=== PATIENT | male | born 1975 | race African-American/Black ===

== ENCOUNTER 2017-08-16 16:54 | Emergency (ER) | payer BC, OTHER ==
[2017-08-16 17:08] VITALS: BMI 30.4
--- NOTE | 2017-08-16 17:08 | PDOC ---
Rapid Medical Evaluation Time Seen by Provider: 08/16/17 17:05 Medical Evaluation: Allergies Allergy/AdvReac Type Severity Reaction Status Date / Time Penicillins Allergy Rash Verified 08/16/17 17:04 08/16/17 17:05 have performed a brief in-person evaluation of this patient. The patient presents with a chief complaint of: CP worse w/ cough and deep inspiration x 4 days. Denies pmhx or illicit drug use. Traveled to and back from [place] 2 weeks ago. No palpitations, leg pain/swelling, sob, diaphoresis, n /v Pertinent physical exam findings:stable and well jose w/ clear chest/lungs I have ordered the following:labs The patient will proceed to the ED for further evaluation Discharge Disposition - Diagnosis Chest pain Qualifiers: Chest pain type: unspecified Qualified Code(s): R07.9 - Chest pain, unspecified - Referrals - Patient Instructions - Post Discharge Activity
--- NOTE | 2017-08-16 17:31 | PDOC ---
History of Present Illness - General Chief Complaint: Chest Pain Stated Complaint: CHEST PAIN Time Seen by Provider: 08/16/17 17:05 - History of Present Illness Initial Comments: 08/16/17 17:31 The patient presents with a chief complaint of: CP worse w/ cough and deep inspiration x 4 days. Denies pmhx or illicit drug use. Traveled to and back from [place] 2 weeks ago. No palpitations, leg pain/swelling, sob, diaphoresis, n /v Past History - Past Medical History Allergies/Adverse Reactions: Allergies Allergy/AdvReac Type Severity Reaction Status Date / Time Penicillins Allergy Rash Verified 08/16/17 17:04 COPD: No Other medical history: DENIES. - Surgical History Appendectomy: Yes - Suicide/Smoking/Psychosocial Hx Smoking History: Never smoked *Physical Exam - Vital Signs Last Vital Signs Temp Pulse Resp BP Pulse Ox 98 F 68 19 143/78 98 08/16/17 17:04 08/16/17 17:04 08/16/17 17:04 08/16/17 17:04 08/16/17 17:04 *DC/Admit/Observation/Transfer Diagnosis at time of Disposition: Chest pain Qualifiers: Chest pain type: unspecified Qualified Code(s): R07.9 - Chest pain, unspecified - Referrals - Patient Instructions - Post Discharge Activity
--- NOTE | 2017-08-16 17:44 | PDOC ---
History of Present Illness - General Chief Complaint: Chest Pain Stated Complaint: CHEST PAIN Time Seen by Provider: 08/16/17 17:05 History Source: Patient Exam Limitations: No Limitations - History of Present Illness Initial Comments: This is a 42 YOM with h/o distant appendectomy who p/w one month of intermittent sharp substernal chest pain radiating to the left lower chest, associated with rapid palpitations. The pain is worsened by deep breathing. He left on a trip to [place] about 2 weeks ago, which was a ~[address] , and returned about 8 days ago. He denies any known exposures to sick people there, and denies any fever, chills, nausea, vomiting, diarrhea, constipation, rash, cough, congestion, runny nose, SOB, abdominal pain, dysuria, lightheadedness, headache, leg swelling/pain, or other symptoms. He has never had these symptoms before and denies having taken any medications for the symptoms. He does not use exogenous hormones and has no h/o blood clotting issues. Past History - Past Medical History Allergies/Adverse Reactions: Allergies Allergy/AdvReac Type Severity Reaction Status Date / Time Penicillins Allergy Rash Verified 08/16/17 17:04 COPD: No Other medical history: DENIES. - Surgical History Appendectomy: Yes - Suicide/Smoking/Psychosocial Hx Smoking History: Never smoked Review of Systems - Review of Systems Able to Perform ROS?: Yes Constitutional: No: Chills, Fever, Unexplained wgt Loss HEENTM: No: Nose Congestion, Throat Pain Respiratory: No: Cough, Shortness of Breath Cardiac (ROS): Yes: Chest Pain, Palpitations ABD/GI: No: Constipated, Diarrhea, Nausea, Vomiting : No: Burning, Dysuria Musculoskeletal: No: Back Pain, Neck Pain Integumentary: No: Bruising, Rash Neurological: No: Headache, Numbness, Tingling, Weakness, Dizziness Endocrine: No: Unexplained Weight Gain, Unexplained Weight Loss *Physical Exam - Vital Signs Last Vital Signs Temp Pulse Resp BP Pulse Ox 98 F 68 19 143/78 98 08/16/17 17:04 08/16/17 17:04 08/16/17 17:04 08/16/17 17:04 08/16/17 17:04 - Physical Exam General Appearance: Yes: Nourished, Appropriately Dressed, Other (nontoxic and well appearing adult male who appears comfortable and answers questions appropriately). No: Apparent Distress HEENT: positive: EOMI, Normal Voice, Hearing Grossly Normal. negative: Scleral Icterus (R), Scleral Icterus (L), Nasal Congestion Neck: positive: Trachea midline, Supple. negative: Tender, Rigid Respiratory/Chest: positive: Lungs Clear, Normal Breath Sounds. negative: Respiratory Distress, Crackles, Rhonchi, Stridor, Wheezing Cardiovascular: positive: Regular Rhythm, Regular Rate, S1, S2. negative: Edema , JVD, Murmur Gastrointestinal/Abdominal: positive: Normal Bowel Sounds, Soft. negative: Tender, Organomegaly, Pulsatile Mass, Guarding Musculoskeletal: positive: Normal Inspection. negative: Decreased Range of Motion, Vertebral Tenderness Extremity: positive: Normal Capillary Refill, Normal Inspection, Normal Range of Motion. negative: Tender, Cyanosis Integumentary: positive: Normal Color, Dry, Warm. negative: Erythema, Rash, Bruising Neurologic: positive: interpreter and translator II-XII NML intact (grossly), Fully Oriented, Alert, Normal Mood/Affect, Normal Response, Motor Strength / ED Treatment Course - LABORATORY CBC & Chemistry Diagram: 08/16/17 17:41 08/16/17 17:41 - ADDITIONAL ORDERS Additional order review: 08/16/17 17:41 RBC 4.65 MCV 92.0 MCHC 33.5 RDW 13.2 MPV 8.0 Neutrophils % 44.7 Lymphocytes % 43.5 H Monocytes % 8.8 Eosinophils % 2.3 Basophils % 0.7 - Medications Given in the ED: ED Medications Discontinued Medications Generic Name Dose Route Start Last Admin Trade Name Freq PRN Reason Stop Dose Admin Acetaminophen 975 mg 08/16/17 18:06 08/16/17 18:41 Tylenol - PO 08/16/17 18:07 975 mg ONCE ONE Administration Medical Decision Making - Medical Decision Making Adult male Pt p/w chest pain for the past month. Initial Vital Signs Temp Pulse Resp BP Pulse Ox 98 F 68 19 143/78 98 08/16/17 17:04 08/16/17 17:04 08/16/17 17:04 08/16/17 17:04 08/16/17 17:04 Exam: very well appearing, comfortable, appropriate, normal heart/lung/ abdominal exams, does not appear anxious. DDX IBNLT: GERD, gastritis, PUD, ACS, pericarditis, tamponade, aortic dissection , AAA, PTX, PE, esophageal tear, esophagitis (e.g. pill, infectious), esophageal stricture, esophageal FB, pancreatitis, cholecystitis, cholangitis, colitis, bowel perforation, PNA/bronchitis, pleurisy, pleuritis, MVP, pulmonary HTN, musculoskeletal, panic/anxiety, etc. W/U ordered: CBCD CMP Mg Phos Lipase Troponin CK CKMB Coags T&S Blood gas UA UCx EKG CXR. TX ordered: Tylenol Unlikely ACS as Pt has few risk factors, no associated SOB or typical arm/neck radiation. Unlikely pericarditis as pain is not relieved sitting forward, Pt afebrile, no friction rub. Unlikely tamponade as Pt has no triad of hypotension/JVD/muffled heart sounds. Unlikely AD as no ripping/tearing sensation, BP not concerningly elevated, radial pulses equal bilaterally. Unlikely AAA as Pt has no midline pulsatile mass or h/o AAA/AD, denies HTN or connective tissue d/o. Unlikely pneumothorax as VS are wnl, Pt has no recent h/o trauma or falls, not SOB. Unlikely PE as Pt is low-risk according to Wells and Perc tools, no hypoxia or tachycardia or SOB. Unlikely esophageal tear (Sammie-Mckeon/Boerhaave) as Pt denies recent EtOH or heavy vomiting/wretching. Unlikely esophagitis as Pt denies heavy NSAIDs or pills soon before onset, no immunocompromise/steroids. Unlikely esophageal stricture as the Pt is still able to keep down solids per usual, no prior hx. Unlikely esophageal FB as Pt denies having eaten just prior to onset, no stuck sensation. Unlikely gastritis as Pt denies h/o significant GERD, no overuse of EtOH. Unlikely PUD as Pt does not report relief of pain ~2 hours postprandially or with antacids. Unlikely pancreatitis as Pt denies EtOH use, h/o gallstones, no known hypercalcemia. Unlikely cholecystitis as no postprandial worsening. Unlikely cholangitis as Pt has no fever, clinical jaundice, RUQ pain; also no hypotension or AMS. Unlikely colitis as clinically Pts abdomen is not distended/no ascites, no fever, other VS wnl. Unlikely bowel perforation as Pt does not appear to have acute abdomen, no peritoneal signs. Unlikely PNA/bronchitis as Pt has no SOB, cough, fever, known exposures, h/o recurrent PNA, etc. EKG: CXR: NADP Labs: HEART score: Repeat VS: Reassessment: Cardiac enzymes are negative. Patient has been having these symptoms for a month, unchanged. No new abnormal rhythms have been observed on the rn cardiac. On last reassessment VS are stable, Pts pain is resolved, and exam is benign. The Pts HEART score indicates they are low risk and do not require admission currently. The Pt is appropriate for discharge with close outpatient follow up. They are comfortable with this plan and will follow up with their PCP in 1-3 days. Specific return precautions are discussed and they will come back to the ER if necessary. 08/16/17 18:57 *DC/Admit/Observation/Transfer Diagnosis at time of Disposition: Chest pain Qualifiers: Chest pain type: unspecified Qualified Code(s): R07.9 - Chest pain, unspecified - Discharge Dispostion Condition at time of disposition: Stable Decision to Admit order: No - Referrals Referrals: Raymond Aragon MD [Primary Care Provider] - - Patient Instructions Printed Discharge Instructions: DI for Chest Pain Additional Instructions: You were seen in the ER for chest pain. We did lab work on your blood and urine , an electrocardiogram, and a chest x-ray, and we did not find any concerning abnormalities. After our assessment, we do not believe you are having a medical emergency at this time, and we believe you are safe to go home. We do not have a clear answer for what is causing your pain, but a common cause of this type of pain is acid reflux. Please try taking omeprazole or another over-the- counter antacid, following the instructions on the label. Take [id number] pain medications for your pain, as instructed on the medication label. Please follow up with your regular PCP doctor in 1-3 days. Call their clinic as soon as possible, tell them you were seen in the ER, and tell them you need an appointment. If you have any new or worsening symptoms, especially worsening chest pain, jaw pain, shoulder/arm pain, shortness of breath, sweats, nausea, loss of consciousness, palpitations, or other symptoms, please come back to the ER at any time (24 hours a day). If you are having severe or life threatening symptoms, or symptoms that make it unsafe to drive or have someone drive you, please call 911. - Post Discharge Activity
[2017-08-16 17:52] LABS: BASO % 0.7 % (0-2.0); EOS % 2.3 % (0-4.5); HEMATOCRIT 42.8 % (35.4-49); HEMOGLOBIN 14.3 GM/dL (11.7-16.9); LYMPH % 43.5 % (8-40); MCH 30.8 pg (25.7-33.7); MCHC 33.5 g/dl (32.0-35.9); MONO % 8.8 % (3.8-10.2); NEUT % 44.7 % (42.8-82.8); PLATELET COUNT 276 K/MM3 (134-434); RBC 4.65 M/mm3 (4.00-5.60); RDW 13.2 % (11.9-15.9); WHITE BLOOD COUNT 7.8 K/mm3 (4.0-10.0)
[2017-08-16] MEDS ORDERED: ACETAMINOPHEN 500 MG TABLET (FP) PO ONE (18:06)
[2017-08-16 18:24] LABS: ANION GAP 8 (8-16); BILIRUBIN,TOTAL 0.5 mg/dL (0.2-1.0); BLOOD UREA NITROGEN 13 mg/dL (7-18); CALCIUM 8.6 mg/dL (8.5-10.1); CHLORIDE 105 mmol/L (98-107); CO2 27 mmol/L (21-32); CREATININE 1.1 mg/dL (0.7-1.3); GLUCOSE,RANDOM 86 mg/dL (74-106); POTASSIUM 3.8 mmol/L (3.5-5.1); SGOT/AST 23 U/L (15-37); SGPT/ALT 61 U/L (12-78); SODIUM 140 mmol/L (136-145)
[2017-08-16 18:27] LABS: ALK PHOS 64 U/L (45-117)
--- NOTE | 2017-08-16 18:30 | PDOC ---
Attending Attestation - Resident Resident Name: Anaya Harry - ED Attending Attestation I have performed the following: I have examined & evaluated the patient, The case was reviewed & discussed with the resident, I agree w/resident's findings & plan, Exceptions are as noted - HPI HPI: 08/16/17 18:27 The patient is a 42 year old male with no PMH who presents to the emergency department with chest pain for 4 days. The patient reports that his chest pain is left sided and radiates to his left lateral chest. The patient reports associated palpitations but no SOB. He also states that the pain is slightly worse with deep inspiration. The patient reports that he recently traveled to [place] 2 weeks ago. He denies any leg swelling or tenderness. The patient denies any fever, chills, nausea, vomit, diarrhea, constipation or urinary symptoms. The patient denies headache and dizziness. Denies FH of [place]. Denies h/ o DVT/PE. Denies any hormone use. Allergies:Penicillins Past surgical history: appendectomy PCP: Dr. Aragon " - Physicial Exam PE: 08/16/17 18:29 "GENERAL: Awake, alert, and fully oriented, in no acute distress. HEAD: No signs of trauma EYES: PERRLA, EOMI, sclera anicteric, conjunctiva clear ENT: Auricles normal inspection, hearing grossly normal, nares patent, oropharynx clear without exudates. Moist mucosa NECK: Nontender, no stepoffs, Normal ROM, supple, no lymphadenopathy, JVD, or masses LUNGS: Breath sounds equal, clear to auscultation bilaterally. No wheezes, and no crackles HEART: Regular rate and rhythm, normal S1 and S2, no murmurs, rubs or gallops ABDOMEN: Soft, nontender, normoactive bowel sounds. No guarding, no rebound. No masses EXTREMITIES: Normal range of motion, no edema. No clubbing or cyanosis. No cords, erythema, or tenderness NEUROLOGICAL: Cranial nerves II through XII intact. 5/5 strength and sensation in all extremities, Normal speech, normal gait, normal cerebellar function SKIN: Warm, Dry, normal turgor, no rashes or lesions noted. " - Medical Decision Making 08/16/17 18:29 42 M with atypical chest pain. ACS unlikely given lack of risk factors. Will r/ o with trop and EKG. Pt has pleuritic chest pain but no PE risk factors and normal vitals. PERC score 0. - Labs, trop - CXR
[2017-08-16] MEDS ORDERED: ACETAMINOPHEN 325 MG TABLET (FP) ONE (18:49)
--- NOTE | 2017-08-16 20:00 | PDOC ---
*Physical Exam - Vital Signs Last Vital Signs Temp Pulse Resp BP Pulse Ox 98 F 68 19 143/78 98 08/16/17 17:04 08/16/17 17:04 08/16/17 17:04 08/16/17 17:04 08/16/17 17:04 - Physical Exam Comments: 08/16/17 20:05 GENERAL: Awake, alert, and fully oriented, in no acute distress HEAD: No signs of trauma, normocephalic, atraumatic EYES: PERRLA, EOMI, sclera anicteric, conjunctiva clear ENT: Auricles normal inspection, hearing grossly normal, nares patent, oropharynx clear without exudates. Moist mucosa NECK: Normal ROM, supple, no lymphadenopathy, JVD, or masses LUNGS: No distress, speaks full sentences, clear to auscultation bilaterally HEART: Regular rate and rhythm, normal S1 and S2, no murmurs, rubs or gallops, peripheral pulses normal and equal bilaterally. EXTREMITIES: Normal inspection, Normal range of motion, no edema. No clubbing or cyanosis. NEUROLOGICAL: Cranial nerves II through XII grossly intact. Normal speech, normal gait, no focal sensorimotor deficits SKIN: Warm, Dry, normal turgor, no rashes or lesions noted. ED Treatment Course - LABORATORY CBC & Chemistry Diagram: 08/16/17 17:41 08/16/17 17:41 - ADDITIONAL ORDERS Additional order review: Laboratory Results 08/16/17 17:41 Sodium 140 Potassium 3.8 Chloride 105 Carbon Dioxide 27 Anion Gap 8 BUN 13 Creatinine 1.1 Creat Clearance w eGFR > 60 Random Glucose 86 Calcium 8.6 Total Bilirubin 0.5 AST 23 ALT 61 Alkaline Phosphatase 64 Creatine Kinase 189 Troponin I < 0.02 Total Protein 8.0 Albumin 4.0 08/16/17 17:41 RBC 4.65 MCV 92.0 MCHC 33.5 RDW 13.2 MPV 8.0 Neutrophils % 44.7 Lymphocytes % 43.5 H Monocytes % 8.8 Eosinophils % 2.3 Basophils % 0.7 - Medications Given in the ED: ED Medications Discontinued Medications Generic Name Dose Route Start Last Admin Trade Name Freq PRN Reason Stop Dose Admin Acetaminophen 975 mg 08/16/17 18:06 08/16/17 18:41 Tylenol - PO 08/16/17 18:07 975 mg ONCE ONE Administration Medical Decision Making - Medical Decision Making 08/16/17 20:[address] Pickett. Patient is a 42M with history of appendectomy here today complaining of chest pain. Pain is atypical. Pending labs and cxr, one troponin required before discharge. Laboratory Tests 08/16/17 08/16/17 17:41 17:41 WBC 7.8 Hgb 14.3 Plt Count 276 Troponin I < 0.02 CBC normal. Troponin undetectable. Given return precautions and instructions to follow up with PCP/cardiology. *DC/Admit/Observation/Transfer Diagnosis at time of Disposition: Chest pain Qualifiers: Chest pain type: unspecified Qualified Code(s): R07.9 - Chest pain, unspecified - Discharge Dispostion Condition at time of disposition: Good - Referrals Referrals: Raymond Aragon MD [Primary Care Provider] - Mateus Hernandez MD [Staff Physician] - - Patient Instructions Printed Discharge Instructions: DI for Chest Pain Additional Instructions: You were seen in the ER for chest pain. We did lab work on your blood and urine , an electrocardiogram, and a chest x-ray, and we did not find any concerning abnormalities. After our assessment, we do not believe you are having a medical emergency at this time, and we believe you are safe to go home. We do not have a clear answer for what is causing your pain, but a common cause of this type of pain is acid reflux. Please try taking omeprazole or another over-the- counter antacid, following the instructions on the label. Take [id number] pain medications for your pain, as instructed on the medication label. Please follow up with your regular PCP doctor in 1-3 days. Call their clinic as soon as possible, tell them you were seen in the ER, and tell them you need an appointment. If you have any new or worsening symptoms, especially worsening chest pain, jaw pain, shoulder/arm pain, shortness of breath, sweats, nausea, loss of consciousness, palpitations, or other symptoms, please come back to the ER at any time (24 hours a day). If you are having severe or life threatening symptoms, or symptoms that make it unsafe to drive or have someone drive you, please call 911. - Post Discharge Activity
[2017-08-16 21:00] VITALS: BP 128/78; PULSE 71; TEMP 98.2
--- NOTE | 2017-08-19 21:59 | EKG ---
Test Reason : Blood Pressure : / mmHG Vent. Rate : 076 BPM Atrial Rate : 076 BPM P-R Int : 172 ms QRS Dur : 104 ms QT Int : 382 ms P-R-T Axes : 065 058 023 degrees QTc Int : 429 ms NORMAL SINUS RHYTHM WITH SINUS ARRHYTHMIA MODERATE VOLTAGE CRITERIA FOR LVH, MAY BE NORMAL VARIANT NONSPECIFIC ST AND T WAVE ABNORMALITY ABNORMAL ECG NO PREVIOUS ECGS AVAILABLE Confirmed by SADIE KERN MD ([id number]) on 08/19/2017 9:59:33 PM Referred By: Confirmed By:SADIE KERN MD
== END 2017-08-16 20:42 | disposition home or self-care (01) ==
LOC: JER 16:54
DX: R07.9 Chest pain, unspecified (principal)
CPT/HCPCS: 36415; 71045-TC-FY; 80053; 82550; 82553; 84484; 85025; 93005; 93010; 99281-25

== ENCOUNTER 2018-08-24 10:24 | Emergency (ER) | payer OTHER, BC ==
[2018-08-24 10:29] VITALS: BP 140/90; PULSE 79; TEMP 98.3; BMI 30.4
[2018-08-24] MEDS ORDERED: IBUPROFEN 400 MG TABLET (FP) PO ONE ×2 (10:39→10:44)
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
== END 2018-08-24 10:56 | disposition home or self-care (01) ==
LOC: JERFT 10:24
DX: Z04.1 Encounter for examination and observation following transport accident (principal); M54.2 Cervicalgia; R51 Headache; V43.62XA Car passenger injured in collision with other type car in traffic accident, initial encounter; Y93.89 Activity, other specified; Y92.410 Unspecified street and highway as the place of occurrence of the external cause
CPT/HCPCS: 99281-25